=== PATIENT | male | born 1960 | race Caucasian/White ===

== ENCOUNTER 2017-04-26 10:58 | Inpatient (IN) | payer BC ==
[2017-04-19 17:55] LABS: BASOPHILS 1.9 %; EOSINOPHILS 3.8 %; HEMATOCRIT 41.2 % (40.0-51.0); HEMOGLOBIN 14.4 g/dL (13.6-17.8); IMMATURE GRANULOCYTES 0.2 %; IMMATURE GRANULOCYTES ABSOLUTE 0.01 10/3/uL (0.0-0.11); LYMPHOCYTES ABSOLUTE 1.61 10/3/uL (0.67-4.30); MEAN CORPUSCULAR HEMOGLOB 30.8 pg (26.0-34.0); MEAN CORPUSCULAR VOLUME 88.2 fL (80-100); MEAN PLATELET VOLUME 9.9 fL (9.2-13.0); MONOCYTES 7.1 %; MONOCYTES ABSOLUTE 0.37 10/3/uL (0.21-1.20); NEUTROPHILS ABSOLUTE 2.91 10/3/uL (2.02-8.40); PLATELET COUNT 265 10/3/uL (150-400); RBC DISTRIBUTION WIDTH 13.1 % (12.0-16.0); RED CELL COUNT 4.67 10/6/uL (4.7-6.1); WHITE BLOOD CELLS 5.2 10/3/uL (4.5-10.5)
[2017-04-19 17:56] LABS: MANUAL DIFF NO %
[2017-04-19 18:03] LABS: PARTIAL THROMBO TIME 27.5 SEC (22.5-37.2)
[2017-04-19 18:30] LABS: BUN (BLOOD UREA NITROGEN) 19 MG/DL (6-23); CALCIUM, SERUM 8.8 MG/DL (8.5-10.4); CHLORIDE, SERUM 109 MMOL/L (96-112); CO2 (CARBON DIOXIDE) 26 MMOL/L (24-34); GFR AFRICAN AMERICAN 70 ML/MIN (>=60); GFR NON AFRICAN AMERICAN 61 ML/MIN (>=60); POTASSIUM, SERUM 4.2 MMOL/L (3.5-5.3); SODIUM, SERUM 135 MMOL/L (135-148)
[2017-04-19 18:33] LABS: GLUCOSE, SERUM 109 MG/DL (60-99)
--- NOTE | ~2017-04-26 | DS ---
Discharge Summary [facility] [id number] [place]. [address] NAME: GARCÍA GREGORY : 58 STATUS : DIS IN PAT#: [id number] AGE: 57 ADM/REG DATE : 04/26/17 MR#: [id number] REPORT SERV DATE: 05/11/17 DICTATED BY: VISHAL FOSTER DATE: 05/10/17 REPORT STATUS : Draft TRANSCRIBED BY: MODL DATE: 05/10/17 Data Collection from hospitalization DISCHARGE DIAGNOSIS(ES): 1. 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 2. Asthma. 3. Occasional gastroesophageal reflux disease. 4. Anxiety. 5. History of prostate cancer. 6. Elevated body mass index. CONSULTATIONS: None. PROCEDURES PERFORMED: 1. Right partial glossectomy. Complex closure of a 7.5 x 3.5 cm tongue defect, right selective neck dissection levels 1 through 3/5, cranial nerve transposition on the right spinal accessory nerve, 04/26/2017. 2. Modified barium swallow study, 04/29/2017. PATHOLOGY: Parotid tail excision-benign parotid tissue and one lymph node free of tumor (0/1). Right level 2 lymph node excision-one lymph node free of tumor (0/1). Right level 3 lymph node, excision-one lymph node free of tumor (0/1). Right level 1A and 1B lymph node, dissection-five lymph nodes free of tumor (0/5). Submandibular gland free of tumor. Right level 3/5 lymph nodes dissection-16 lymph nodes free of tumor (0/16). Right level 2 lymph nodes dissection-24 lymph nodes free of tumor (0/24). Additional submental lymph node excision-no gabriela tissue present. Benign fibroadipose tissue only. External jugular excision-benign vein and soft tissue. No gabriela tissue present. Right lateral tongue partial glossectomy-squamous cell carcinoma. MEDICATIONS: 1. Ventolin two puffs via inhaler as needed. 2. Symbicort two puffs via inhaler twice a day. 3. Zyrtec 10 mg daily. 4. Hycet 15 mL every six hours as needed. 5. Mobic 7.5 mg daily. 6. Singulair 10 mg at bedtime. 7. Desyrel 50 mg at bedtime. CONDITION AT DISCHARGE: Stable. DISPOSITION: The patient was discharged home on a pureed diet with aspiration precautions and activities as instructed. He would follow up with me on 05/02/2017. HOSPITAL COURSE: This is a 56-year-old man who has invasive squamous cell carcinoma of the right oral tongue with a PET-CT scan that showed some mild uptake in the neck nodes. It was an invasive oral tongue cancer, and selective neck dissection was recommended as well although clinically, he has a N0 neck. Treatment options were discussed, and he elected to proceed with surgical intervention. He was admitted to the hospital at this time for Discharge Summary [address] [address] NAME: GARCÍA GREGORY : 58 STATUS : DIS IN PAT#: [id number] AGE: 57 ADM/REG DATE : 04/26/17 MR#: [id number] REPORT SERV DATE: 05/11/17 DICTATED BY: VISHAL FOSTER DATE: 05/10/17 REPORT STATUS : Draft TRANSCRIBED BY: MODL DATE: 05/10/17 further evaluation and treatment. Upon admission, he was taken to the operating room where he underwent the above-mentioned procedure. He tolerated this well. There were no complications. On postop day one, he was alert and cooperative. He had good pain control. His dressings were clean, dry, and intact. He was evaluated by Physical Therapy. Speech/Language Pathology performed a bedside swallow study. Aspiration precautions were in place. He remained stable over the next couple of days. On the , he underwent a modified barium swallow study. There was no definite evidence of aspiration or penetration during the exam. Discharge instructions were given. Due to his improved and stable condition, he was discharged home with the above stated instructions. Information collected by: Cha Ceballos I submit the above information as my discharge summary. TG/SHAKILA Vishal Foster M.D. / [id number] CC: Uriel AshleySandoval
--- NOTE | ~2017-04-26 | OP ---
Record Of Operation [facility] [address] [place]. 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 PROCEDURE PERFORMED: 1. Right partial glossectomy. 2. Complex closure of a 7.5 x 3.5 cm tongue defect. 3. Right selective neck dissection, levels 1 through 3/5. 4. Cranial nerve transposition on the right spinal accessory nerve. SURGEON: Vishal Foster M.D. PERSONNEL RECRUITER: Chano Jaquez. ANESTHESIA: General. COMPLICATIONS: None. CONDITION: Stable to recovery. INDICATIONS: A 56-year-old male with invasive squamous cell carcinoma of the right oral tongue with a PET-CT scan showing some mild uptake in the neck nodes. It was an invasive oral tongue cancer and so the selective neck dissection was recommended as well, although he had a clinically N0 neck. Risks, benefits, and alternatives were discussed, and he agreed. PROCEDURE IN DETAIL: The patient was identified in preoperative holding, taken back to the operating room, and placed supine on the operating room table. General anesthesia was established with nasotracheal intubation through the left naris. A small portion of sponge was placed in the left nares between the nasal sill and the nasotracheal tube to prevent any lateral necrosis. The tube was then secured. The patient was prepped and draped in a standard fashion for the operation. A time-out was called, and the patient and procedure were confirmed. 1% lidocaine with 1:100,000 epinephrine was used to inject the right neck incision, which was marked from the mastoid tip to the midline of the neck using a pre- existing skin crease. Using 2.5x loupe magnification and headlight illumination, the operation commenced. A Bovie cautery set on the cut, 20 cut mode and 20 coagulation mode was used throughout the case along with bipolar cautery and Harmonic scalpel. The cut mode was used to make the skin incision. The cautery and cut modes were used to elevate subplatysmal flaps. The fascia was taken off the anterior sternocleidomastoid muscle preserving the great auricular nerve sacrificing the external jugular vein. There are external jugular vein lymph nodes that were removed and sent as external jugular lymph nodes. The fascia was delivered from a lateral to medial direction over the sternomastoid muscle and identifying the omohyoid inferiorly and the digastric muscle superiorly. The spinal accessory nerve was identified deep in the right neck amidst a lot of fatty tissue Record Of Operation [facility] [address] [place]. [address] NAME: GARCÍA GREGORY : 58 STATUS : ADM IN PAT#: [id number] AGE: 56 ADM/REG DATE : 04/26/17 MR#: [id number] REPORT SERV DATE: 04/27/17 DICTATED BY: VISHAL FOSTER DATE: 04/26/17 REPORT STATUS : Draft TRANSCRIBED BY: SHAKILA DATE: 04/26/17 and lymph nodes. He had a very short deep neck and this did make it a more challenging dissection. The spinal accessory nerve was 360 degree dissected with the Metzenbaum scissors and vessel loop was placed around the nerve, so that could be transposed anteriorly and posteriorly to deliver the lymph nodes off the splenius capitis and levator scapulae fascia and delivered underneath the spinal accessory nerve. The fascia was then incised along the level 2 and 3 lymphatics at the posterior edge of the sternocleidomastoid muscle. This gave access to the cervical rootlets which were preserved in the dissection, harmonic scalp was used for the majority of this case. The lymphatics were rotated from the anterior aspect of level 5 over the cervical rootlets and level 2 and 3 over the jugular vein and using the omohyoid muscle as the inferior border. A large lymph node in right level 2, an enlarged lymph node in right level 3 were sent for frozen section, both of them were inflammatory without evidence of cancer. A 15 blade was used to dissect the lymph nodes off the jugular vein and then Harmonic scalpel used to deliver the lymphatic envelope and more medially up to the level 1 dissection. The great facial vein was ligated and elevated using a Velarde Yohan maneuver to protect the marginal branch of the facial nerve. The facial artery was ligated with a medium hemoclip and Harmonic scalpel delivering the submandibular gland out of the fossa and the lower border of the mandible was incised with Bovie cautery from the angle to the mentum releasing the soft tissue into the submandibular space. The pre and post vascular lymph nodes were dissected. The mylohyoid muscle was identified, retracted anteriorly. The lingual nerve, hypoglossal nerve, and the sub were identified and preserved. The submandibular duct and the submandibular ganglion were ligated with medium hemoclips and Harmonic scalpel. We then dissected out the submental recess by identifying the contralateral belly of the anterior belly of the digastric muscle, the mylohyoid fascia, and the ipsilateral anterior belly of digastric muscle fascia. Lymph nodes were taken off this fascia and delivered along with the specimen as level 1A and B submandibular submental space. The specimen was then was into level 2 and into level 3/5 anterior 5. The wound was irrigated. Bipolar cautery was used for hemostasis. The spinal accessory nerve stimulated well. The marginal mandibular branch was not identified directly as it was transposed with the facial vein. The wound was irrigated. Bipolar cautery was used for hemostasis. The 10-Bulgarian flat fully perforated drain was placed and secured with a 3-0 silk suture. The platysma was closed with 3-0 interrupted Vicryl and then jackie were used to close the skin. A sterile dressing was placed over the wound and then bed was lowered and the head turned to the midline and a lip protractor and a mouth gag was used to expose the right oral tongue. There was a 1 cm centrally ulcerated, slightly indurated circular tumor with peripheral leukoplakia. We marked a 1 cm margin around the leukoplakia, which ended up being approximately 2 cm around the area which appeared to be invasive and indurated. This area was infiltrated submucosally with 5 mL of 1% lidocaine with 1:100,000 epinephrine. Again using 2.5x loupe magnification and headlight illumination, the needle tip cautery was used to excise the right lateral tongue lesion with at least a 2 cm deep margin and a 1.5 to 2 cm peripheral margin. Frozen section evaluation showed clear margins. The wound was 7.5 cm in length by 3.5 cm in width and was closed in 3 layers using deep Vicryl sutures for the deep two layers and then 3-0 Vicryl suture for the mucosal edges. The sponge and needle count were correct at the end of the case. There were no complications. The patient was handed to Anesthesia for extubation and returned to recovery. Record Of Operation [facility] [id number] [facility] [place]. [address] NAME: GARCÍA GREGORY : 58 STATUS : ADM IN [facility]#: [id number] AGE: 56 ADM/REG DATE : 04/26/17 MR#: [id number] REPORT SERV DATE: 04/27/17 DICTATED BY: VISHAL FOSTER DATE: 04/26/17 REPORT STATUS : Draft TRANSCRIBED BY: SHAKILA DATE: 04/26/17 PH/SHAKILA Vishal Foster M.D. / [id number] CC: Uriel Ashley
[~2017-04-26 10:58] MED LIST: C2 PO; C5 PO; COUMADIN4 MG PO; MOBIC7.5 PO; MULTIPLE VIT PO; PCET PO; PROVHFA INH; REQUIP1 PO; SINGULAIR1 PO; SYMBICORT 160/41 INH INH; TRAZ50 PO; VENTOLIN HFA INH; ZYRTEC ALLGY10 MG PO
[2017-04-27 04:22] LABS: BASOPHILS 0.2 %; BASOPHILS ABSOLUTE 0.02 10/3/uL (0.0-0.16); EOSINOPHILS 0 %; HEMATOCRIT 40.2 % (40.0-51.0); IMMATURE GRANULOCYTES 0.2 %; IMMATURE GRANULOCYTES ABSOLUTE 0.02 10/3/uL (0.0-0.11); LYMPHOCYTES 6.8 %; MANUAL DIFF NO %; MEAN CORPUS HGB CONC 34.8 g/dL (32.0-36.0); MEAN CORPUSCULAR HEMOGLOB 30.9 pg (26.0-34.0); MEAN CORPUSCULAR VOLUME 88.7 fL (80-100); MEAN PLATELET VOLUME 9.6 fL (9.2-13.0); MONOCYTES 8.1 %; MONOCYTES ABSOLUTE 0.83 10/3/uL (0.21-1.20); NEUTROPHILS 84.7 %; NEUTROPHILS ABSOLUTE 8.68 10/3/uL (2.02-8.40); PLATELET COUNT 239 10/3/uL (150-400); RBC DISTRIBUTION WIDTH 13.2 % (12.0-16.0); RED CELL COUNT 4.53 10/6/uL (4.7-6.1); WHITE BLOOD CELLS 10.3 10/3/uL (4.5-10.5)
[2017-04-27 04:42] LABS: CALCIUM, SERUM 8.5 MG/DL (8.5-10.4); CHLORIDE, SERUM 108 MMOL/L (96-112); CO2 (CARBON DIOXIDE) 23 MMOL/L (24-34); CREATININE 0.94 MG/DL (0.70-1.30); GFR AFRICAN AMERICAN 104 ML/MIN (>=60); GFR NON AFRICAN AMERICAN 90 ML/MIN (>=60); POTASSIUM, SERUM 4.1 MMOL/L (3.5-5.3); SODIUM, SERUM 137 MMOL/L (135-148)
[2017-04-27 04:43] LABS: BUN (BLOOD UREA NITROGEN) 13 MG/DL (6-23); GLUCOSE, SERUM 136 MG/DL (60-99)
[2017-04-29] MEDS ORDERED: HYCET 7.5 MG-3473 ML PO (15:46)
== END 2017-04-29 17:39 | disposition home or self-care (01) | DRG 130 ==
LOC: SDC/OF 10:58 → PACU 19:07 → IMCU 21:19
PROVIDERS: Specialist
PROC: 07T10ZZ Resection of Right Neck Lymphatic, Open Approach (ICD-10-PCS; 2017-04-26)
PROC: 0CQ7XZZ Repair Tongue, External Approach (ICD-10-PCS; 2017-04-26)
PROC: 0CB7XZZ Excision of Tongue, External Approach (ICD-10-PCS; principal; 2017-04-26 12:45)
DX: C02.9 Malignant neoplasm of tongue, unspecified (principal)
CPT/HCPCS: 36415; 71010; 71020; 74230; 80048; 85025; 85730; 86850; 86900; 86901; 87641; 88305; 88307; 88309; 88331; 88332; 88333; 88342; 92610-GN; 92611-GN; 93005; 94640; 97161-GP; A9270-GY; J0690; J1170; J1630; J2250; J2405; J2710; J3010